=== PATIENT | female | born 1980 | race Caucasian/White ===

== ENCOUNTER 2023-10-06 11:51 | Emergency (ER) | payer SELFPAY ==
[2023-10-06] MEDS: Ketorolac 30 MG/ML SDV IM ONE (12:58)
== END 2023-10-06 15:25 | disposition home or self-care (01) ==
LOC: JD.ED 11:51
DX: M25.561 Pain in right knee (principal)
CPT/HCPCS: 73562; 73590; 96372; 99283; J1885

== ENCOUNTER 2024-02-08 15:16 | Emergency (ER) | payer MEDICAID ==
[2024-02-08] MEDS: Cyclobenzaprine 10 MG Tab PO ONE (16:59)
[2024-02-08] MEDS: Ketorolac 10 MG Tab PO ONE (16:59)
[2024-02-08] MEDS: Acetaminophen/HYDROcodone 325-5 MG Tab PO ONE (17:51)
== END 2024-02-08 18:37 | disposition home or self-care (01) ==
LOC: JD.ED 15:16
DX: M79.602 Pain in left arm (principal); I10 Essential (primary) hypertension; Z90.49 Acquired absence of other specified parts of digestive tract
CPT/HCPCS: 99283; A9270

== ENCOUNTER 2024-11-08 20:18 | Emergency (ER) | payer BC, MEDICAID ==
[2024-11-08] MEDS ORDERED: Sodium Chloride 0.9% 10 ML Syringe FLUSH PRN (20:47)
[2024-11-08 21:03] LABS: BASOPHILS ABSOLUTE AUTO 0.1 K/mm3 (0.0-0.2); BASOPHILS PERCENT AUTO 1.1 % (0.0-1.0); EOSINOPHILS ABSOLUTE AUTO 0.2 K/mm3 (0.0-0.4); EOSINOPHILS PERCENT AUTO 2.1 % (0.0-6.0); IMMATURE GRAN ABSOLUTE AUTO 0.05 K/mm3 (0.00-0.05); IMMATURE GRAN PERCENT AUTO 0.7 % (0.0-0.4); LYMPHOCYTES ABSOLUTE AUTO 2.3 K/mm3 (1.0-4.8); LYMPHOCYTES PERCENT AUTO 32.8 % (24.0-44.0); MEAN PLATELET VOLUME 9.9 fl (9.4-12.3); MONOCYTES ABSOLUTE AUTO 0.9 K/mm3 (0.0-0.8); MONOCYTES PERCENT AUTO 11.9 % (0.0-8.0); NEUTROPHILS ABSOLUTE AUTO 3.7 K/mm3 (1.8-7.7); NEUTROPHILS PERCENT AUTO 51.4 % (41.0-71.0); NRBC ABSOLUTE 0.00 (0.00-0.02); NRBC PERCENT 0.0 % (0.0-0.2); PLATELET COUNT,PLT 279 K/mm3 (150-400); RED BLOOD CELL COUNT 4.46 M/mm3 (4.10-5.30); WHITE BLOOD CELL COUNT,WBC 7.14 K/mm3 (3.9-11.3)
[2024-11-08 21:17] LABS: A/G RATIO 0.8 (1-2); ALANINE AMINOTRANSFERASE,ALT 25.0 U/L (14-59); ASPARTATE AMNIOTRANSFERASE,AST 17.0 U/L (15-37); BILIRUBIN TOTAL 0.5 mg/dL (0.2-1.0); BLOOD UREA NITROGEN,BUN 15.0 mg/dL (7-18); CARBON DIOXIDE,CO2 27.0 mEq/L (21-32); CHLORIDE,CL 102.0 mEq/L (98-107); CREATININE 1.0 mg/dL (0.55-1.02); EST CRCL DRUG DOSING (CG) 69.09 mL/min; ESTIMATED GFR 71.0 mL/min (>60); GLUCOSE RANDOM 101.0 mg/dL (70-99); POTASSIUM,K 3.8 mEq/L (3.5-5.1); PROTEIN TOTAL,TP 7.7 g/dl (6.4-8.2); SODIUM,NA 136.0 mEq/L (136-145)
[2024-11-08 21:33] LABS: APPEARANCE,URINE CLEAR (Clear); GLUCOSE,URINE NEGATIVE (Negative); OCCULT BLOOD,URINE TRACE-INTACT (Negative)
[2024-11-08 21:38] LABS: EPITHELIAL CELLS,URINE 0-5 /hpf (0-5)
[2024-11-08] MEDS ORDERED: Naloxone 0.4 MG/ML SDV IVPUSH PRN (21:58)
== END 2024-11-09 11:00 | disposition left against medical advice (07) ==
LOC: JD.ED 20:18
DX: R10.31 Right lower quadrant pain (principal); I10 Essential (primary) hypertension; Z79.899 Other long term (current) drug therapy; Z86.16 Personal history of COVID-19; Z53.20 Procedure and treatment not carried out because of patient's decision for unspecified reasons
CPT/HCPCS: 36415; 76830; 80053; 81001; 83690; 84703; 85025; 86140; 96365; 96374; 96375; 96376; 99284; J1171; J2543